=== PATIENT | female | born 1980 ===

== ENCOUNTER → 2018-04-01 | Outpatient (CLI) | payer OTHER ==
--- NOTE | 2018-04-01 13:27 | KCIC ---
[facility] radiograph of the orbits 04/01/2018 CLINICAL HISTORY: Metal exposure to the eye. Pre-MRI evaluation. A [facility] digital radiograph of the orbits was obtained. No radiopaque foreign body is seen. The visualized paranasal sinuses are clear. IMPRESSION: No radiopaque foreign body is seen involving either orbit. Electronically signed by: Don Eli MD (04/01/2018 1:23 PM) [id number]
--- NOTE | 2018-04-01 15:29 | KCIC ---
MR of the right knee Indication: Right knee pain chronically, worse since August 2017. Lateral and medial pain. Swelling. Technique: The standard multiplanar sequences are obtained. FINDINGS: Artifact: No significant image degradation. Medial meniscus:Intact. Lateral meniscus: Intact. Anterior cruciate ligament: Intact Posterior cruciate ligament: Intact Medial collateral ligament: Intact. Lateral structures: * Iliotibial band: Intact. * Lateral collateral ligament: The conjoined tendon demonstrates mild thickening and increased signal, with mild edema within the fibular head deep to the attachment. The proximal lateral collateral ligament is intact as is the remaining biceps femoris tendon. * Popliteus tendon attachment: Intact Extensive mechanism: * Patellar tendon: Intact * Quadriceps tendon: Intact * Retinacular structures: Intact Fluid: Large joint effusion. No significant Leija's cyst. Intra-articular bodies: None visualized Joint compartments * patellofemoral joint:Intact * medial compartment:Intact * lateral compartment: Intact * Tibiofibular joint: Degenerative changes with marginal spurring and subchondral cysts and edema. There could also be a component of acute posttraumatic transchondral contusion. Bones: No significant lesion or acute fracture. Soft tissue: Unremarkable Impression: 1. Ill-definition and edema at the conjoined tendon insertion to the fibular head, compatible with a sprain or mild partial tear. 2. Degenerative changes at the proximal tibiofibular joint, with or without superimposed acute transchondral marrow contusion. 3. Large joint effusion. Electronically signed by: Adilson Martinez MD (04/01/2018 3:26 PM) [id number]
== END | disposition home or self-care (01) ==
LOC: KCIC MRI 13:00
PROVIDERS: ATTEND Internal Medicine
DX: M17.11 Unilateral primary osteoarthritis, right knee (principal); R60.9 Edema, unspecified; Z77.018 Contact with and (suspected) exposure to other hazardous metals
CPT/HCPCS: 70030; 73721